=== PATIENT | male | born 1955 | race African-American/Black ===

== ENCOUNTER 2022-06-09 10:01 | Emergency (ER) | payer MEDICAID ==
[~2022-06-09] VITALS: Ht 170.2 cm; Wt 63.6 kg
[2022-06-09] MEDS ORDERED: levetiracetam inj 1,000 MG in normal saline 100ml IV soln 90 ML IV ONE (10:30)
[2022-06-09] MEDS ORDERED: levetiracetam inj 1,000 MG in normal saline 100ml IV soln 100 ML IV ONE (10:31)
[2022-06-09] MEDS ORDERED: normal saline 1000ml 1,000 ML IV ONE (10:35)
[2022-06-09] MEDS ORDERED: midazolam 1 mg/ML 2ml injection IV ONE (10:35)
[2022-06-09 11:58] LABS: BASOPHILS % (AUTO) 0.7 % (0-1); EOSINOPHILS # (AUTO) 0.2 X10'3 (0-0.9); EOSINOPHILS % (AUTO) 2.6 % (0-6); HEMATOCRIT 40.1 % (42.0-52.0); HEMOGLOBIN 13.4 g/dl (14.0-17.9); LYMPHOCYTES # (AUTO) 1.4 X10'3 (1.1-4.8); LYMPHOCYTES % (AUTO) 21.8 % (21-51); MEAN CORPUSCULAR HGB CONC 33.3 g/dL (33.0-36.5); MEAN CORPUSCULAR VOLUME 93.2 FL (78-98); MEAN PLATELET VOLUME 6.7 FL (7.4-10.4); MONOCYTES # (AUTO) 0.5 X10'3 (0-0.9); MONOCYTES % (AUTO) 7.4 % (2-12); NEUTROPHILS # (AUTO) 4.4 X10'3 (1.8-7.7); NEUTROPHILS % (AUTO) 67.5 % (42-75); PLATELET COUNT 270 X10'3 (140-440); RED BLOOD COUNT 4.31 X10'6 (4.70-6.10); RED CELL DISTRIBUTION WIDTH 16.2 % (11.5-14.5); WHITE BLOOD COUNT 6.5 X10'3 (4.5-11.0)
[2022-06-09 12:06] LABS: ALANINE AMINOTRANSFERASE 13 U/L (12-78); ALBUMIN 3.7 G/DL (3.4-5.0); ALKALINE PHOSPHATASE 168 IU/L (46-116); ANION GAP 6 (8-16); ASPARTATE AMINO TRANSFERASE 11 U/L (10-37); BILIRUBIN,TOTAL 0.1 MG/DL (0.1-1.0); BLOOD UREA NITROGEN 9 MG/DL (7-18); BUN/CREATININE RATIO 11.4 (5.4-32.0); CALCIUM 8.8 MG/DL (8.5-10.1); CHLORIDE 109 MMOL/L (99-107); CREATININE 0.79 MG/DL (0.60-1.10); GLUCOSE 81 MG/DL (70-104); POTASSIUM 4.3 MMOL/L (3.5-5.1); SODIUM 141 MMOL/L (135-145); TOTAL CARBON DIOXIDE 26.1 MMOL/L (24-32); TOTAL PROTEIN 7.3 G/DL (6.4-8.2); eGFR > 90 ML/MIN
[2022-06-09] MEDS ORDERED: ketorolac trometh. 30mg/ml inj. IV ONE (12:15)
[2022-06-09 12:16] LABS: CREATINE KINASE 125 U/L (39-308); PHENYTOIN (DILANTIN) 11.4 UG/ML (10.0-20.0)
[2022-06-09 12:26] LABS: CLARITY,URINE CLEAR (Clear); GLUCOSE, URINE NEGATIVE (Neg); KETONES,URINE NEGATIVE (Neg); LEUKOCYTE ESTERASE ,URINE NEGATIVE (Neg); NITRITES, URINE NEGATIVE (Neg); OCCULT BLOOD,URINE NEGATIVE (Neg); PROTEIN,URINE NEGATIVE (Neg); UROBILINOGEN,URINE 0.2 E.U/dL (0.2-1.0)
[2022-06-09 12:27] LABS: COLOR,URINE STRAW (Yellow); UA COLLECTION TYPE CLN CATCH MIDSTREAM
[2022-06-09] MEDS ORDERED: phenytoin sod 50mg/ml 2ml vial IV ONE (12:30)
[2022-06-09 12:51] LABS: URINE AMPHETAMINE SCREEN NEGATIVE (Neg); URINE BARBITUATE SCREEN NEGATIVE (Neg); URINE BENZODIAZEPINES SCREEN POSITIVE (Neg); URINE CANNABINOID SCREEN NEGATIVE (Neg); URINE COCAINE SCREEN NEGATIVE (Neg); URINE METHADONE SCREEN NEGATIVE (Neg); URINE OPIATE SCREEN NEGATIVE (Neg); URINE PHENCYCLIDINE SCREEN NEGATIVE (Neg)
--- NOTE | 2022-06-09 13:20 | NUR ---
PT GAVER PERMISSION FOR SISTER TO RECEIVE UPDATES ON CONDITION. PT SISTER IS ROEL LEROY AND HER NUMBER IS [phone].
[2022-06-09 14:28] VITALS: BP 132/84
== END 2022-06-09 14:31 | disposition home or self-care (01) ==
LOC: ER 10:01
DX: G40.909 Epilepsy, unspecified, not intractable, without status epilepticus (principal); N23 Unspecified renal colic
CPT/HCPCS: 36415; 70450; 71045; 74176; 80053; 80185; 80305; 81003; 82550; 84443; 84484; 85025; 93005; 96365; 96375; 99285; J1165; J1885; J1953; J2250; J3490; J7030

== ENCOUNTER 2022-06-25 22:46 | Emergency (ER) | payer MEDICARE, MEDICAID ==
[~2022-06-25] VITALS: Ht 165.1 cm; Wt 59.1 kg
[2022-06-25 23:02] VITALS: BP 118/88
== END 2022-06-26 04:44 | disposition left against medical advice (07) ==
LOC: ER 22:47
DX: R56.9 Unspecified convulsions (principal); Z53.21 Procedure and treatment not carried out due to patient leaving prior to being seen by health care provider